=== PATIENT | male | born 1975 | race Hispanic/Latino ===

== ENCOUNTER 2025-04-28 08:43 | Emergency (ER) | payer OTHER ==
[~2025-04-28] VITALS: Ht 162.6 cm; Wt 91.3 kg
[2025-04-28 09:10] LABS: IMMATURE GRANULOCYTE ABSOLUTE 0.06 K/uL (0-1); NUCLEATED RED BLOOD CELLS 0.0 % (0.0-0.19); PLATELET COUNT (AUTO) 275 K/uL (130-400); RED BLOOD CELL COUNT(AUTO) 5.49 MIL/uL (4.50-6.20); RED CELL DISTRIBUTION WIDTH 13.5 % (11.0-15.5); WHITE BLOOD COUNT (AUTO) 9.5 K/uL (4.8-10.8)
--- NOTE | 2025-04-28 09:58 | HMCIMG ---
EXAM: CT Head Without IV contrast. CLINICAL HISTORY: left sided headache TECHNIQUE: Axial computed tomography images of the head/brain without intravenous contrast. COMPARISON: None provided. FINDINGS: BRAIN: No evidence of acute hemorrhage. No mass lesion. No CT evidence for acute territorial infarct. No midline shift or extra-axial collections. VENTRICLES: No hydrocephalus. ORBITS: The orbits are unremarkable. SINUSES AND MASTOIDS: There is mucosal hypertrophy in the frontal sinuses and right ethmoid and sphenoid sinuses. The paranasal sinuses and mastoid air cells are otherwise clear. BONES: No fracture. SOFT TISSUES: Unremarkable. IMPRESSION: No acute intracranial abnormality. Sinusitis. /[place]
[2025-04-28 10:00] LABS: CREATININE 0.7 mg/dL (0.5-1.3); GLOMERULAR FILTR. RATE CALC 113.0 mL/min (>90); GLUCOSE,RANDOM 135.0 mg/dL (70-105); SODIUM SERUM 137.0 mmol/L (136-145); UREA NITROGEN, BLOOD 12.0 mg/dL (7-18)
--- NOTE | 2025-04-28 10:47 | ERN ---
General Chief Complaint: Headache Stated Complaint: HEADACHE Time Seen by MD: 09:21 Source: patient History of Present Illness Initial Comments Patient is a 50 year old male with PMH of hyperlipidemia who came in complaining of headache which started on Friday afternoon. Patient rated the pain a 8/10 and in the right eye. He described the pain as burning and tingling. He had as sociated symptoms of phonophobia but no nausea, vomiting or photophobia. He said this is the first time he had this happen. Patient took Tylenol which seemed to help him initially but wasn't helpful after. Patient did have a elevated blood pressure today around 153/93. He also had lacrimation from his right eye today which brought him to the ER. Timing/Duration: constant Severity: mild Modifying Factors: improves with medication Associated Symptoms: headaches Allergies: Coded Allergies: No Known Drug Allergies (Unverified Allergy, Unknown, 04/28/25) Past Medical History Past Medical History: No Pertinent History, High Cholesterol Medical History Other: denies pmhx Past Surgical History: Cholecystectomy EENTM: (+) eye pain, (+) tearing Review of Systems: was completed, & the rest were negative. Physical Exam General Appearance: (+) no apparent distress Orientation: (+) alert, (+) oriented x 3 Head/Face Trauma: No Eye: bilateral eye normal inspection, bilateral eye PERRL, bilateral eye EOMI Heart: (+) regular, (+) no gallop Vascular: (+) no edema Gastrointestinal: (+) soft, (+) non-tender, (+) no organomegaly, (+) bowel sound present Results Laboratory and Microbiology Lab and Micro Result Laboratory Tests Test 04/28/25 09:04 White Blood Count 9.5 K/uL (4.8-10.8) Red Blood Count 5.49 MIL/uL (4.50-6.20) Hemoglobin 16.2 g/dL (14.0-18.0) Hematocrit 48.8 % (42-54) Mean Corpuscular Volume 88.9 fL (79-99) Mean Corpuscular Hemoglobin 29.5 pg (27.0-33.0) Mean Corpuscular Hemoglobin Concent 33.2 g/dL (32.0-36.0) Red Cell Distribution Width 13.5 % (11.0-15.5) Platelet Count 275 K/uL (130-400) Mean Platelet Volume 10.5 fL (7.5-10.5) Immature Granulocyte % (Auto) 0.6 % (0-1) Neutrophils (%) (Auto) 48.9 % (40.0-77.0) Lymphocytes (%) (Auto) 29.6 % (21.0-51.0) Monocytes (%) (Auto) 6.7 % (3.0-13.0) Eosinophils (%) (Auto) 13.7 % (0.0-8.0) H Basophils (%) (Auto) 0.5 % (0.0-5.0) Neutrophils # (Auto) 4.7 K/uL (1.8-7.7) Lymphocytes # (Auto) 2.8 K/uL (1.0-4.8) Monocytes # (Auto) 0.6 K/uL (0.1-1.0) Eosinophils # (Auto) 1.30 K/uL (0.00-0.70) H Basophils # (Auto) 0.05 K/uL (0.00-0.20) Absolute Immature Granulocyte (auto 0.06 K/uL (0-1) Nucleated Red Blood Cells 0.0 % (0.0-0.19) Sodium Level 137 mmol/L (136-145) Potassium Level 3.6 mmol/L (3.5-5.1) Chloride Level 101 mmol/L (101-111) Carbon Dioxide Level 26 mmol/L (21-32) Blood Urea Nitrogen 12 mg/dL (7-18) Creatinine 0.7 mg/dL (0.5-1.3) Glomerular Filtration Rate Calc 113 mL/min (>90) Random Glucose 135 mg/dL (70-105) H Total Calcium 8.8 mg/dL (8.5-10.1) Labs Reviewed?: Yes EKG/XRAY/US/CT/MRI CT Scan Comment [place] [address] [address] IMAGING REPORT Signed PATIENT: SATHISH LACEY MR#: [id number] : 1975 SEX: M AGE: 50 LOCATION: [facility] [address] ORDER [id number] STATUS: REG ER REPORT#: [id number] SERVICE [id number] REASON: left sided headache ORDERING PHYSICIAN: ARDEN TRUONG MD PROCEDURE: HEAD WO - CT HEAD/BRAIN W/O CONTRAST EXAM: CT Head Without IV contrast. CLINICAL HISTORY: left sided headache TECHNIQUE: Axial computed tomography images of the head/brain without intravenous contrast. COMPARISON: None provided. FINDINGS: BRAIN: No evidence of acute hemorrhage. No mass lesion. No CT evidence for acute territorial infarct. No midline shift or extra-axial collections. VENTRICLES: No hydrocephalus. ORBITS: The orbits are unremarkable. SINUSES AND MASTOIDS: There is mucosal hypertrophy in the frontal sinuses and right ethmoid and sphenoid sinuses. The paranasal sinuses and mastoid air cells are otherwise clear. BONES: No fracture. SOFT TISSUES: Unremarkable. IMPRESSION: No acute intracranial abnormality. Sinusitis. /[place] DICTATED BY: TIESHA FORD MD DATE: 04/28/251056 ELECTRONICALLY SIGNED BY: TIESHA FORD MD DATE: 04/28/251056 MDM During the patients visit we performed CT scan, CBC and BMP. All of which came back negative. Patient's CT scan did show Sinusitis, and given his negative physical exam, along with his BP returning to normal we are going to discharge the patient on Augmentin. MDM: Differential diagnosis: Rationale: Tests considered and ordered secondary to shared decision making include: Previous outside records reviewed: Old ER visits. Risk of complication and/or morbidity or mortality of patient management: None Medications-Per medication reconciliation Need for hospitalization: Patient does not meet criteria for hospitalization. Need for emergency major/minor surgery: No There are no social concerns with this patient. Prescription drug management Prescriptions will include symptomatic care Patient's prior external medical records from other ER visits were reviewed by me as indicated. Prior testing and results from previous visits were reviewed. Prior tests were taken into account with medical decision making and resource utilization, independent historian/historians were used to obtain complete medical history. I independently interpreted the test that were performed, results were reviewed by me and considered findings on radiology if ordered. Medical management and examination interpretation discussions were had by me with other qualified healthcare professionals as indicated for the patient's care. ED Course Orders Procedure Category Date Status Time Cbc With Differential LAB 04/28/25 Complete 08:49 Basic Metabolic Panel LAB 04/28/25 Complete 08:49 Ct Head/Brain W/O CT 04/28/25 Resulted Contrast 08:49 Ketorolac PHA 04/28/25 Complete Tromethamine 15mg/Ml 09:00 Current Medications Medications (Trade) Dose Ordered Sig/Mandy Route PRN Reason Start Time Stop Time Status Last Admin Dose Admin Ketorolac Tromethamine (toRADol) 15 mg ONCE ONCE IV 04/28/25 09:00 04/28/25 09:01 DC 04/28/25 09:09 Vital Signs Date Time Temp Pulse Resp B/P (MAP) Pulse Ox O2 Delivery O2 Flow Rate FiO2 04/28/25 08:48 98.1 66 16 153/93 98 Room Air* 0 21 04/28/25 08:45 98.1 66 16 153/93 98 Room Air 0 Problem List Problem Lists: (1) headache around the right eye DX & DISP Disposition: Discharge Departure Impression: Primary Impression: Headache Additional Impression: Sinusitis Condition: Stable Scripts Amoxicillin/Potassium Clav (Amox Tr-K Clv 875-125 mg Tab) 875 Mg-125 Mg Tablet 1 TAB PO BID for 10 Days, #20 TAB 0 Refills Prov: ARDEN TRUONG MD 04/28/25 Additional Instructions: Take all the antibiotics as prescribed to its completion even if you are feeling better Follow up with your PCP within 2-3 days of discharge Please call 911 or return to the ER if the headache worsens, or if you start feeling shortness of breath, chest pain, nausea or vomiting not controlled with medication. Referrals: GOPI NAVA MD (PCP) AME REYNOSO MD Apr 28, 2025 10:47 ARDEN TRUONG MD Apr 28, 2025 10:51
[2025-04-28] MEDS ORDERED: AMOX1TAB16 PO (10:50)
[2025-04-28 10:59] VITALS: BP 124/85; PULSE 72; RESP 21; TEMP 97.9; O2SAT 94
== END 2025-04-28 11:23 | disposition home or self-care (01) ==
LOC: EDH 08:43
DX: J32.1 Chronic frontal sinusitis (principal); J32.2 Chronic ethmoidal sinusitis; E78.00 Pure hypercholesterolemia, unspecified; Z90.49 Acquired absence of other specified parts of digestive tract
CPT/HCPCS: 99285; 96374; 70450; 85025; 80048; 36415; J1885